=== PATIENT | male | born 1945 | race Two or more races ===

== ENCOUNTER 2017-03-21 15:20 | Inpatient (IN) | payer SELFPAY ==
[2017-03-21] MEDS ORDERED: ACETAMINOPHEN 650 MG/20.3 ML ORAL SOLUTION (CUPS) PO ONE (15:29)
--- NOTE | 2017-03-21 15:37 | PDOC ---
History of Present Illness - General History Source: Patient, Old Records Exam Limitations: No Limitations - History of Present Illness Initial Comments: 03/21/17 17:02 The patient is a 71-year-old man with a significant past medical history of hypertension, hypercholesterolemia, coronary artery disease status post stent x1 , non-insulin diabetes mellitus and kidney stones who presents to the emergency department for fever. Patient reports a 1 week history of an atruamatic severe frontal headache that radiates to both of his ears, right greater than left with associated generalized malaise and a sore throat. He denies associated symptoms of lightheadedness, visual changes, dizziness, chest pain, neck and back pain. He also notes a three day history of intermittent subjective fevers at home with associated shaking chills and myagias. Upon ED arrival, patient was noted to have an oral temperature of 102.9 and tachycardic to 118 bpm. No sick contacts No cough, shortness of breath, abdominal pain, nausea, vomiting, diarrhea. No changes in strength and sensations to his extremities. No urinary complaints. Allergies: No Known Drug Allergies Past Surgical History: Stent x1 Social History: Former smoker. No EtOH and recreational drug use. Primary Care Physician: N/A <Estela Phillips - Last Filed: 03/21/17 18:30> <Altagracia Medina - Last Filed: 03/21/17 18:32> - General Chief Complaint: SIRS, Suspected/Possible Stated Complaint: SOB/FEVER Time Seen by Provider: 03/21/17 15:37 Past History <Estela Phillips - Last Filed: 03/21/17 18:30> - Past Medical History Cardiac Disorders: Yes (cad) Diabetes: Yes (niddm) Hypercholesterolemia: Yes Kidney Stones: Yes - Surgical History Cardiac Surgery: Yes (stent) - Psycho/Social/Smoking Cessation Hx Anxiety: No Suicidal Ideation: No Smoking History: Former smoker Have you smoked in the past 12 months: No Information on smoking cessation initiated: No Hx Alcohol Use: No Drug/Substance Use Hx: No Substance Use Type: None <Altagracia Medina - Last Filed: 03/21/17 18:32> - Past Medical History Allergies/Adverse Reactions: Allergies Allergy/AdvReac Type Severity Reaction Status Date / Time No Known Allergies Allergy Verified 03/21/17 15:23 Review of Systems - Review of Systems Able to Perform ROS?: Yes Comments:: 03/21/17 17:02 GENERAL/CONSTITUTIONAL: Yes: Fever. Chills. Generalized Malaise. HEAD, EYES, EARS, NOSE AND THROAT: Yes: Sore Throat. Ear Pain (R>L). No change in vision. CARDIOVASCULAR: No chest pain or shortness of breath. RESPIRATORY: No cough, wheezing, or hemoptysis. GASTROINTESTINAL: No nausea, vomiting, diarrhea or constipation. GENITOURINARY: No dysuria, frequency, or change in urination. MUSCULOSKELETAL: No joint or muscle swelling or pain. No neck or back pain. SKIN: No rash NEUROLOGIC: Yes: Headache. No vertigo, loss of consciousness, or change in strength/sensation. ENDOCRINE: No increased thirst. No abnormal weight change. HEMATOLOGIC/LYMPHATIC: No anemia, easy bleeding, or history of blood clots. ALLERGIC/IMMUNOLOGIC: No hives or skin allergy. <Estela Phillips - Last Filed: 03/21/17 18:30> *Physical Exam - Vital Signs Last Vital Signs Temp Pulse Resp BP Pulse Ox 102.9 F H 103 H 18 106/56 97 03/21/17 15:23 03/21/17 16:42 03/21/17 16:42 03/21/17 16:42 03/21/17 16:42 - Physical Exam Comments: 03/21/17 17:03 GENERAL: Awake, alert, and fully oriented, appears mildly uncomfortable. HEAD: No signs of trauma EYES: PERRLA, EOMI, sclera anicteric, conjunctiva clear ENT: The right tympanic membrane is erythematous and slightly bulging. The left tympanic membrane is WNL. Hearing grossly normal, nares patent, oropharynx clear without exudates. Moist mucosa NECK: Normal ROM, supple, no lymphadenopathy, JVD, or masses LUNGS: Breath sounds equal, clear to auscultation bilaterally. No wheezes, and no crackles HEART: Regular rate and rhythm, normal S1 and S2, no murmurs, rubs or gallops ABDOMEN: Soft, nontender, normoactive bowel sounds. No guarding, no rebound. No masses EXTREMITIES: Normal range of motion, no edema. No clubbing or cyanosis. No cords, erythema, or tenderness NEUROLOGICAL: Cranial nerves II through XII grossly intact. Normal speech <Estela Phillips - Last Filed: 03/21/17 18:30> - Vital Signs Last Vital Signs Temp Pulse Resp BP Pulse Ox 102.9 F H 118 H 18 119/59 100 03/21/17 15:23 03/21/17 15:23 03/21/17 15:23 03/21/17 15:23 03/21/17 15:23 <Altagracia Medina - Last Filed: 03/21/17 18:32> ED Treatment Course - LABORATORY CBC & Chemistry Diagram: 03/21/17 16:30 03/21/17 16:30 - ADDITIONAL ORDERS Additional order review: 03/21/17 16:30 RBC 3.80 L MCV 89.3 MCHC 34.0 RDW 14.2 Neutrophils % Y Lymphocytes % Y - Medications Given in the ED: ED Medications Discontinued Medications Generic Name Dose Route Start Last Admin Trade Name Freq PRN Reason Stop Dose Admin Acetaminophen 975 mg 03/21/17 15:29 03/21/17 15:29 Tylenol Oral Solution - PO 03/21/17 15:30 975 mg NOW ONE Administration Acetaminophen 1,000 mg 03/21/17 16:04 03/21/17 16:40 Tylenol - PO 03/21/17 16:05 1,000 mg ONCE ONE Administration <Phillips,Estela - Last Filed: 03/21/17 18:30> - LABORATORY CBC & Chemistry Diagram: 03/21/17 16:30 03/21/17 16:30 - Medications Given in the ED: ED Medications Discontinued Medications Generic Name Dose Route Start Last Admin Trade Name Freq PRN Reason Stop Dose Admin Acetaminophen 975 mg 03/21/17 15:29 03/21/17 15:29 Tylenol Oral Solution - PO 03/21/17 15:30 975 mg NOW ONE Administration <Altagracia Medina - Last Filed: 03/21/17 18:32> Medical Decision Making - Medical Decision Making 03/21/17 17:[address] Thomas Rehman 03/21/17 18:[address] Rehman. Admits to Kennedy Aburto. Will page Dr. Aburto. 03/21/17 18:[address] Naomy Aburto 03/21/17 18:[address] Naomy Aburto. 03/21/17 18:[address] Naomy Aburto. Case was discussed. <Estela Phillips - Last Filed: 03/21/17 18:30> - Medical Decision Making 03/21/17 16:29 Pt presents tot ED complaining of a one week history of generalized malaise and headaches. Also complaining of R > L ear discomfort, myalgias and chills. + fever at home for the last three days. Patient presented to the ED today because his son found him to be tachycardic, and given his cardiac history, was concerned. Febrile and tachycardic on arrival, with normal blood pressure. + R otitis media on exam. Will check labs, give IV fluids and tylenol for fever control and reassess. Will consider discharge home with antibiotics if fever and heart rate improve and labs are normal. 03/21/17 17:57 Labs show lacate of 3.6. Patient remains normotensive and feels improved after IV hydration. Case discussed with patient's PMD Dr. Blas, who recommends admitting overnight. Will give antibiotics after CXR and Ua are resulted. <Altagracia Medina - Last Filed: 03/21/17 18:32> *DC/Admit/Observation/Transfer - Attestations Scribe Attestion: 03/21/17 17:03 Documentation prepared by Estela Phillips, acting as medical transcription radiology for Altagracia Medina MD. <Estela Phillips - Last Filed: 03/21/17 18:30> - Discharge Dispostion Admit: Yes Decision to Admit order Date/Time: 03/21/17 18:32 <Altagracia Medina - Last Filed: 03/21/17 18:32> Diagnosis at time of Disposition: Systemic inflammatory response syndrome (SIRS) - Discharge Dispostion Condition at time of disposition: Good
[2017-03-21] MEDS ORDERED: ACETAMINOPHEN 500 MG TABLET (FP) PO ONE (16:04)
[2017-03-21] MEDS ORDERED: SODIUM CHLORIDE 1,000 ML IV STA (16:05)
[2017-03-21] MEDS ORDERED: ACETAMINOPHEN 325 MG TABLET (FP) ONE (16:32)
[2017-03-21 16:41] LABS: MCH 30.4 pg (25.7-33.7); MEAN CELL VOLUME 89.3 fl (80-96); RDW 14.2 % (11.9-15.9); WHITE BLOOD COUNT 4.5 K/mm3 (4.0-10.0)
[2017-03-21 17:13] LABS: ALBUMIN 3.8 g/dl (3.4-5.0); ALK PHOS 65 U/L (45-117); ANION GAP 10 (8-16); BILIRUBIN,TOTAL 0.6 mg/dL (0.2-1.0); CALCIUM 8.6 mg/dL (8.5-10.1); CO2 25 mmol/L (21-32); CREATININE 1.7 mg/dL (0.7-1.3); GLUCOSE,RANDOM 176 mg/dL (74-106); SGOT/AST 45 U/L (15-37); SGPT/ALT 54 U/L (12-78); TOT PROT 6.9 g/dl (6.4-8.2)
[2017-03-21 18:18] LABS: MEAN PLT VOLUME 7.8 fl (7.5-11.1); PLATELET COUNT 81 K/MM3 (134-434)
[2017-03-21 18:19] LABS: PLATELET ESTIMATE SLT DECREASED (NORMAL)
[2017-03-21] MEDS ORDERED: CEFTRIAXONE 1 GM in DEXTROSE 5%-WATER - 50 ML IVPB ONE (18:31)
[2017-03-21] MEDS ORDERED: CEFTRIAXONE 50 ML ONE (19:07)
[2017-03-21] MEDS ORDERED: ACETAMINOPHEN 325 MG TABLET (FP) PO PRN (22:08)
[2017-03-21] MEDS: SODIUM CHLORIDE 0.45%/POT 1,000 ML IV SCH (23:26)
[2017-03-22 00:46] VITALS: BMI 35.0
[2017-03-22 01:18] LABS: URINE APPEARANCE CLEAR; URINE BILIRUBIN NEGATIVE (NEGATIVE); URINE COLOR LTYELLOW; URINE GLUCOSE (UA) NEGATIVE (NEGATIVE); URINE KETONE NEGATIVE (NEGATIVE); URINE LEUK ESTERASE NEGATIVE (NEGATIVE); URINE NITRITE NEGATIVE (NEGATIVE); URINE PROTEIN NEGATIVE (NEGATIVE); URINE UROBILINOGEN NEGATIVE E.U./dl (0.2-1.0)
[2017-03-22 01:40] LABS: URINE BLOOD 1+ (NEGATIVE)
[2017-03-22 01:49] LABS: URINE BACTERIA RARE /hpf (NONE SEEN); URINE MUCUS RARE; URINE RBC 2 /hpf (0-3); URINE WBC 1 /hpf (3-5)
[2017-03-22] MEDS ORDERED: ACETAMINOPHEN 325 MG TABLET (FP) PO ONE (03:34)
[2017-03-22] MEDS: INSULIN SLIDING SCALE (NOVOLOG) 1 VIAL SQ SCH ×4 (06:03→22:14)
[2017-03-22] MEDS ORDERED: SODIUM CHLORIDE 500 ML IV STA ×2 (06:05→06:06)
[2017-03-22 08:11] LABS: BASOPHIL 0.2 % (0-2.0); EOSINOPHIL 0.1 % (0-4.5); MCH 30.6 pg (25.7-33.7); MCHC 34.2 g/dl (32.0-35.9); MEAN CELL VOLUME 89.5 fl (80-96); MEAN PLT VOLUME 7.6 fl (7.5-11.1); PLATELET COUNT 60 K/MM3 (134-434); RDW 14.2 % (11.9-15.9); WHITE BLOOD COUNT 4.1 K/mm3 (4.0-10.0)
--- NOTE | 2017-03-22 08:13 | HP ---
Admitting History and Physical - Admission History of Present Illness: 71-year-old man with a significant past medical history of hypertension, hypercholesterolemia, coronary artery disease status post stent x1, non-insulin diabetes mellitus and kidney stones who presents to the emergency department for fever. Patient reports a 2 day history of an atruamatic severe frontal headache that radiates to both of his ears, right greater than left with associated generalized malaise and a sore throat. He denies associated symptoms of lightheadedness, visual changes, dizziness, chest pain, neck and back pain. He also notes a 2 day history of intermittent subjective fevers at home with associated shaking chills and myagias. Upon ED arrival, patient was noted to have an oral temperature of 102.9 and tachycardic to 118 bpm. PATIENT REPORTS INSECT BITE 23 DAYS AGO PT HERE FROM [facility] 66 DAYS AGO - Past Medical History Cardiovascular: Yes: CAD, HTN, Hyperlipdemia Pulmonary: No: Asthma Gastrointestinal: No: Ascites Renal/: Yes: Renal Inusuff, BPH Endocrine: Yes: Diabetes Mellitus - Smoking History Smoking history: Former smoker Have you smoked in the past 12 months: No - Alcohol/Substance Use Hx Alcohol Use: No Home Medications - Allergies Allergies/Adverse Reactions: Allergies Allergy/AdvReac Type Severity Reaction Status Date / Time No Known Allergies Allergy Verified 03/21/17 15:23 - Home Medications Home Medications: Ambulatory Orders Bisoprolol Fumarate 03/22/17 Enalapril Maleate 03/22/17 Metformin HCl 03/22/17 Simvastatin 03/22/17 Tamsulosin HCl 03/22/17 Review of Systems - Review of Systems Constitutional: reports: Chills, Fever, Night Sweats Cardiovascular: denies: Chest Pain Respiratory: denies: SOB Gastrointestinal: denies: Abdominal Pain Genitourinary: denies: Burning Neurological: reports: Headache Physical Examination Vital Signs: Vital Signs Temperature 98 F 03/22/17 06:41 Pulse Rate 75 03/22/17 07:16 Respiratory Rate 20 03/22/17 07:16 Blood Pressure 110/54 03/22/17 07:16 O2 Sat by Pulse Oximetry (%) 99 03/21/17 21:00 HENT: Yes: Other (minimal erythema of left tm) Cardiovascular: Yes: Regular Rate and Rhythm Respiratory: Yes: Regular, CTA Bilaterally Gastrointestinal: Yes: Normal Bowel Sounds, Soft Edema: No Imaging - Results Cat Scan: Report Reviewed Problem List - Problems (1) Sepsis Assessment/Plan: IV ABX ID CONSULT--D/W DR MAYS IVF CULTURES Code(s): A41.9 - SEPSIS, UNSPECIFIED ORGANISM (2) Fever Assessment/Plan: ABOVE Code(s): R50.9 - FEVER, UNSPECIFIED Qualifiers: Fever type: febrile nonhemolytic transfusion reaction Qualified Code (s): R50.84 - Febrile nonhemolytic transfusion reaction (3) Thrombocytopenia Assessment/Plan: MONITOR Code(s): D69.6 - THROMBOCYTOPENIA, UNSPECIFIED (4) Diabetes Assessment/Plan: BGM Code(s): E11.9 - TYPE 2 DIABETES MELLITUS WITHOUT COMPLICATIONS (5) Renal insufficiency Assessment/Plan: HOLD METFORMIN CHECK PREVIOUS Code(s): N28.9 - DISORDER OF KIDNEY AND URETER, UNSPECIFIED (6) Anemia Assessment/Plan: W/U OREDERED Code(s): D64.9 - ANEMIA, UNSPECIFIED
[2017-03-22] MEDS ORDERED: sitaGLIPtin PHOSPHATE 50 MG TABLET PO ONE ×2 (08:15→13:00)
[2017-03-22 09:00] LABS: LDL CHOLESTEROL (ONLY SJRH) 73 mg/dL (5-100)
[2017-03-22 09:08] LABS: ALBUMIN 3.3 g/dl (3.4-5.0); ALK PHOS 58 U/L (45-117); ANION GAP 10 (8-16); BILIRUBIN,TOTAL 0.6 mg/dL (0.2-1.0); CALCIUM 7.7 mg/dL (8.5-10.1); CHOLESTEROL 129 mg/dL (50-200); CO2 26 mmol/L (21-32); CREATININE 1.4 mg/dL (0.7-1.3); GLUCOSE,RANDOM 118 mg/dL (74-106); SGOT/AST 42 U/L (15-37); SGPT/ALT 50 U/L (12-78); TOT PROT 5.9 g/dl (6.4-8.2); TROPONIN I < 0.02 ng/ml (0.00-0.05)
--- NOTE | 2017-03-22 09:29 | PN ---
Progress Note, Physician Chief Complaint: ID Asked to see this 71 year old diabetic arab speaking man with fever. Case and history discussed with Dr Aburto Minimal symptoms He is outdoors working in his yard No travel - Current Medication List Current Medications: Active Medications Acetaminophen (Tylenol -) 650 mg PO Q4H PRN PRN Reason: FEVER OR PAIN Last Admin: 03/22/17 01:55 Dose: 650 mg Aspirin (Ecotrin -) 81 mg PO DAILY MICHAEL Atorvastatin Calcium (Lipitor -) 20 mg PO HS MICHAEL Heparin Sodium (Porcine) (Heparin -) 5,000 unit SQ BID MICHAEL Ceftriaxone Sodium (Rocephin 1gm Ivpb (Pre-Docked)) 50 mls @ 100 mls/hr IVPB DAILY MICHAEL Potassium Chloride/Sodium Chloride (1/2ns+20meq Kcl) 1,000 mls @ 75 mls/hr IV ASDIR MICHAEL Last Admin: 03/21/17 23:26 Dose: 75 mls/hr Insulin Aspart (Novolog Vial Sliding Scale -) 1 vial SQ ACHS MICHAEL PRN Reason: Protocol Last Admin: 03/22/17 06:03 Dose: Not Given Nebivolol (Bystolic -) 5 mg PO DAILY MICHAEL Sitagliptin Phosphate (Januvia -) 50 mg PO DAILY@0700 MICHAEL Tamsulosin HCl (Flomax -) 0.4 mg PO DAILY@0830 [facility] - Objective Vital Signs: Vital Signs Temperature 98 F 03/22/17 06:41 Pulse Rate 75 03/22/17 07:16 Respiratory Rate 20 03/22/17 07:16 Blood Pressure 110/54 03/22/17 07:16 O2 Sat by Pulse Oximetry (%) 99 03/21/17 21:00 Constitutional: Yes: Well Nourished, No Distress Eyes: Yes: WNL, Conjunctiva Clear HENT: Yes: Other (Dentures) Neck: Yes: WNL, Supple, Trachea Midline Cardiovascular: Yes: WNL, Regular Rate and Rhythm, S1, S2. No: Murmur Respiratory: Yes: WNL, Regular, CTA Bilaterally Gastrointestinal: Yes: WNL, Normal Bowel Sounds. No: Tenderness, Tenderness, Epigastrium Edema: No Labs: CBC, BMP 03/22/17 06:55 03/22/17 06:55 Problem List - Problems (1) Diabetes Code(s): E11.9 - TYPE 2 DIABETES MELLITUS WITHOUT COMPLICATIONS (2) Fever Code(s): R50.9 - FEVER, UNSPECIFIED Qualifiers: Fever type: febrile nonhemolytic transfusion reaction Qualified Code (s): R50.84 - Febrile nonhemolytic transfusion reaction (3) Thrombocytopenia Code(s): D69.6 - THROMBOCYTOPENIA, UNSPECIFIED Assessment/Plan Microbiology Selected Entries 03/22/17 03/22/17 03/22/17 00:55 03:00 06:41 Temperature 102.9 F H 101.9 F H 98 F Laboratory Tests 03/21/17 03/21/17 03/21/17 16:30 19:00 20:17 WBC Hgb Hct Plt Count Neutrophils % Monocytes % ESR Creat Clearance w eGFR Lactic Acid 3.8 H* 1.4 Total Bilirubin AST ALT Alkaline Phosphatase Urine RBC 2 Urine WBC 1 03/22/17 03/22/17 03/22/17 06:55 06:55 06:55 WBC 4.1 Hgb 11.2 L Hct 32.8 L Plt Count 60 L D Neutrophils % 76.0 Monocytes % 11.0 H ESR Pending Creat Clearance w eGFR 50.25 Lactic Acid Total Bilirubin 0.6 AST 42 H ALT 50 Alkaline Phosphatase 58 Urine RBC Urine WBC Assesment Fever unknown source a this time Differential diagnosis would include Viral illness as well as tick related disease HGA Lyme Babesia Bacterial disease has to be considered though blood culture as expected no growth thus far Plan Stop Ceftriaxone if blood and urine c/s no growth tomorrow Add Doxycycline Tick realted serology CMV Serology monospot ESR CRP Brian REEVES
[2017-03-22] MEDS ORDERED: CEFTRIAXONE 50 ML IVPB SCH (10:00)
[2017-03-22] MEDS ORDERED: NEBIVOLOL 5 MG TABLET (FP) PO SCH (10:00)
[2017-03-22] MEDS ORDERED: INSULIN (NOVOLOG) ASPART 100 UNITS/ML 10ML VIAL ONE ×3 (11:21→21:34)
[2017-03-22] MEDS: ASPIRIN COATED 81 MG TABLET.EC PO SCH (11:27)
[2017-03-22] MEDS: TAMSULOSIN HCL 0.4 MG CAP.ER.24H (FP) PO SCH (11:27)
[2017-03-22] MEDS: DOXYCYCLINE INJECTION 100 MG in DEXTROSE 5%-WATER - 100 ML IVPB SCH ×2 (11:29→22:09)
[2017-03-22] MEDS: NEBIVOLOL 5 MG TABLET (FP) PO SCH (11:37)
[2017-03-22] MEDS: HEPARIN NA (PORCINE) 5,000 UNITS/ML 1ML VIAL SQ SCH ×2 (11:41→22:09)
--- NOTE | 2017-03-22 12:38 | EKG ---
Test Reason : Blood Pressure : / mmHG Vent. Rate : 078 BPM Atrial Rate : 078 BPM P-R Int : 154 ms QRS Dur : 082 ms QT Int : 374 ms P-R-T Axes : 012 -02 074 degrees QTc Int : 426 ms NORMAL SINUS RHYTHM NORMAL ECG WHEN COMPARED WITH ECG OF 21-MAR-2017 20:18, NO SIGNIFICANT CHANGE WAS FOUND Confirmed by JENNA PADGETT MD ([id number]) on 03/22/2017 12:38:09 PM Referred By: MARIAM LOYA Confirmed By:JENNA PADGETT MD
--- NOTE | 2017-03-22 12:53 | EKG ---
Test Reason : Blood Pressure : / mmHG Vent. Rate : 094 BPM Atrial Rate : 094 BPM P-R Int : 150 ms QRS Dur : 090 ms QT Int : 344 ms P-R-T Axes : 005 000 074 degrees QTc Int : 430 ms NORMAL SINUS RHYTHM NONSPECIFIC T WAVE ABNORMALITY ABNORMAL ECG NO PREVIOUS ECGS AVAILABLE Confirmed by JENNA PADGETT MD ([id number]) on 03/22/2017 12:52:54 PM Referred By: Confirmed By:JENNA PADGETT MD
[2017-03-22] MEDS: SODIUM CHLORIDE 0.45%/POT 1,000 ML IV SCH ×2 (17:47→21:48)
--- NOTE | 2017-03-22 18:21 | CONS ---
DATE OF CONSULTATION: HISTORY: This is a 71-year-old diabetic Romansh speaking man who I am asked to see for evaluation of unexplained fever. He has a history of diabetes, hypertension , coronary artery disease, hyperlipidemia, and kidney stones and presented to the emergency room with chief complaint of fever. According to the emergency room notes, he had told the emergency staff that he had been having headaches for several days associated with some generalized malaise and a sore throat. Currently, he notes that his headache has resolved. He does not appear toxic appearing when seeing him and does not offer any other complaints at this time. He points to an area in his right lower extremity where he thinks he may have been bitten by an insect. He has no other rash, joint problems, eye complaints, current headaches, or joint swelling or stiffness. He lives with his family at home. There is no history of recent travel, and his HIV status is unknown. PAST MEDICAL HISTORY: As noted above. MEDICATIONS: Include Flomax, Bystolic, Januvia, Lipitor, insulin, Ecotrin. ALLERGIES: None known. SOCIAL HISTORY: . No history of alcohol abuse. Nonsmoker. FAMILY HISTORY: Reviewed and noncontributory. REVIEW OF SYSTEMS: Respiratory: No cough, shortness of breath, hemoptysis. Cardiac: No chest pain, palpitations, history of murmur. Gastrointestinal: No abdominal pain, vomiting, diarrhea. Genitourinary: No dysuria, hematuria, urinary frequency. Skin: No rash. PHYSICAL EXAMINATION: General: He is an alert male in no acute distress. Vital Signs: Temperature 102.9 on admission, now 98, pulse 75, blood pressure 110/54, respirations 20. HEENT: Sclerae anicteric. Oropharynx, no evidence of erythema or exudate. Upper and lower dentures. Neck: Supple with no adenopathy. Lungs: Clear to percussion and auscultation. Heart: S1, S2. Regular rhythm without audible murmur. Abdomen: Soft and nontender without hepatosplenomegaly. Extremities: Without clubbing, cyanosis, or edema. Skin: Reveals a small, erythematous lesion in the medial inner right lower extremity below the knee, which was tender to touch but not fluctuant. DIAGNOSTIC DATA: White count 4.1, hemoglobin 11.2, platelets 60,000, with 76% polys, 13 lymphocytes, 11% bands. Sedimentation rate pending. BUN 19, creatinine 1.4, bilirubin 0.6, AST 42, alkaline phosphatase 58. Urinalysis: 2 RBCs, 1 WBC. Chest x-ray shows no acute infiltrate. ASSESSMENT: A 71-year-old diabetic male who presents with fever of unknown source. Currently he does not appear toxic, and his vital signs are stable. He is apparently an outdoor gardening individual, and the possibility given the summertime of a tick-related illness such as human granulocytic anaplasmosis is considered. Additional tick illnesses including Lyme and Babesia also considered as a possible cause of fever and thrombocytopenia. His rash is not consistent with erythema migrans and appears incidental at this point and could represent a simple insect bite. The thrombocytopenia could be on the basis of a viral illness, but once again, tick-related organisms considered. PLAN: Would discontinue ceftriaxone if his blood and urine cultures are no growth. Will add doxycycline for HGA coverage. Serologies for HGA, Babesia, and Lyme as well as CMV and mononucleosis have been ordered. The latter, of course, unlikely given his age. Case was discussed with Dr. Aburto. DEVYN PIEDRA M.D. [id number] MTDD
--- NOTE | 2017-03-22 20:54 | CONSULT ---
Consult - text type - Consultation Consultation Note: NEUROLOGY CONSULTATION is greatly appreciated: This 71 yo man with h/o HTN, DM,Chol, ASHD is s/p Stent. Maintained on tamsulosin, januvia, bystoloic, lipitor and insulin. Now admitted after 1 week of headache, malaise, fever and chills with temp over 102 in ER. WBC=4K. Chest XRay and UA unremarkable. Better on Ceftriaxone for possible insect vector borne infection from yard work. CT of head (reviewed): Normal study. MISTY: Afebrile. Neck supple. No bruits. Cor: Reg. No skin rashes. NEURO: Awake alert. Follows all visual clues. No frontal release findings. CN II-XII: Normal Motor: NO drift or tremor. Normal strength. Min cogwheeling on Right. Normal HAMILTON's Normal reflexes except reduced AJ's. Toes downgoing Coord: NO FTN dystaxia Sensory: Normal Romberg neg Gait: Normal. Walk on heads, toes. IMP: Normal neurological exam. Possible mild diabetic Peripheral neuropathy. Possible viral meningitis. R/O Lyme, etc. SUGGEST: Continue current Rx. Await serologies. F/U Dr. Torres as out patient. Thank you very much, Cortez Talbot MD
[2017-03-22] MEDS ORDERED: PT OWN MED DRAWER 7, Y5N ONE ×2 (21:08→21:13)
[2017-03-22] MEDS: DOCUSATE SODIUM 100 MG CAPSULE (FP) PO SCH (22:09)
[2017-03-22] MEDS: ATORVASTATIN CA 20 MG TABLET (FP) PO SCH (22:09)
--- NOTE | 2017-03-22 23:51 | CONSULT ---
Consult Consult Specialty:: ENDOCRINE Referred by:: DR.ANNABI BECERRA Reason for Consultation:: DIABETES MELLITUS - History of Present Illness Chief Complaint: FEVER CHILLS AFTER INSECT BITE History of Present Illness: 71 Y ZAMBIAN MALE PMH NIDDM,HTN,HYPERLIPIDEMIA,CAD,WAS VISITING BROTHER HAD BEEN IN USUAL STATE OF HEALTH,STARTED FEELING FLUE LIKE ILLNESS HEADACHE,FEVER CHILLS SINCE INSECT BITE TO FACE AND RIGHT LEG WITH CHILLS AND MALAISE,HAS BEEN ON ANTIBIOTIC AND FEELS SOMEWHAT BETTER DENIES NAUSEA OR VOMITING - History Source History Provided By: Patient - Past Medical History Cardio/Vascular: Yes: CAD, HTN, Hyperlipdemia Pulmonary: No: Asthma Gastrointestinal: No: Ascites Renal/: Yes: Renal Inusuff, BPH Endocrine: Yes: Diabetes Mellitus - Alcohol/Substance Use Hx Alcohol Use: No - Smoking History Smoking history: Former smoker Have you smoked in the past 12 months: No Home Medications - Allergies Allergies/Adverse Reactions: Allergies Allergy/AdvReac Type Severity Reaction Status Date / Time No Known Allergies Allergy Verified 03/21/17 15:23 - Home Medications Home Medications: Ambulatory Orders Bisoprolol Fumarate 03/22/17 Enalapril Maleate 03/22/17 Metformin HCl 03/22/17 Simvastatin 03/22/17 Tamsulosin HCl 03/22/17 Review of Systems - Review of Systems Constitutional: reports: Fever, Lethargy, Loss of Appetite, Weakness Eyes: reports: No Symptoms HENT: reports: Ear Pain Neck: reports: No Symptoms Cardiovascular: reports: No Symptoms Respiratory: reports: No Symptoms Gastrointestinal: reports: No Symptoms Genitourinary: reports: No Symptoms Breasts: reports: No Symptoms Reported Musculoskeletal: reports: No Symptoms Integumentary: reports: No Symptoms Neurological: reports: No Symptoms Endocrine: reports: No Symptoms Hematology/Lymphatic: reports: No Symptoms Physical Exam Vital Signs: Vital Signs Temperature 98.4 F 03/22/17 18:00 Pulse Rate 85 03/22/17 18:00 Respiratory Rate 18 03/22/17 18:00 Blood Pressure 116/58 03/22/17 18:00 O2 Sat by Pulse Oximetry (%) 97 03/22/17 10:00 Constitutional: Yes: Anxious Eyes: Yes: EOM Intact HENT: Yes: Normocephalic Neck: Yes: Trachea Midline Cardiovascular: Yes: Regular Rate and Rhythm Respiratory: Yes: CTA Bilaterally Gastrointestinal: Yes: Normal Bowel Sounds ...Rectal Exam: Yes: Deferred Renal/: Yes: WNL Breast(s): Yes: WNL Musculoskeletal: Yes: Joint Swelling, Muscle Pain Extremities: Yes: Other (RIGHT THIGH RED IRRITATED RAISED SIGHT NEAR THE INSECT BITE) Peripheral Pulses WNL: Yes Integumentary: Yes: WNL Neurological: Yes: WNL, Alert, Oriented Labs: CBC, BMP 03/22/17 06:55 03/22/17 06:55 Problem List - Problems (1) Anemia Code(s): D64.9 - ANEMIA, UNSPECIFIED Qualifiers: Anemia type: unspecified type Qualified Code(s): D64.9 - Anemia, unspecified (2) Diabetes Code(s): E11.9 - TYPE 2 DIABETES MELLITUS WITHOUT COMPLICATIONS (3) Fever Code(s): R50.9 - FEVER, UNSPECIFIED Qualifiers: Fever type: febrile nonhemolytic transfusion reaction Qualified Code (s): R50.84 - Febrile nonhemolytic transfusion reaction (4) Systemic inflammatory response syndrome (SIRS) Code(s): R65.10 - SIRS OF NON-INFECTIOUS ORIGIN W/O ACUTE ORGAN DYSFUNCTION (5) Thrombocytopenia Code(s): D69.6 - THROMBOCYTOPENIA, UNSPECIFIED Assessment/Plan Current Active Problems Anemia (Acute) Diabetes (Acute) Fever (Acute) Renal insufficiency (Acute) Sepsis (Acute) Systemic inflammatory response syndrome (SIRS) (Acute) Thrombocytopenia (Acute) Abnormal Lab Results 03/21/17 03/22/17 03/22/17 20:17 06:55 06:55 RBC 3.67 L Hgb 11.2 L Hct 32.8 L Plt Count 60 L D Monocytes % 11.0 H ESR BUN 19 H Creatinine 1.4 H Random Glucose 118 H D Hemoglobin A1c % Calcium 7.7 L AST 42 H C-Reactive Protein Total Protein 5.9 L Albumin 3.3 L Urine Blood 1+ H 03/22/17 03/22/17 03/22/17 06:55 06:55 06:55 RBC Hgb Hct Plt Count Monocytes % ESR 30 H BUN Creatinine Random Glucose Hemoglobin A1c % 6.4 H Calcium AST C-Reactive Protein 11.4 H Total Protein Albumin Urine Blood Laboratory Results - last 24 hr 06/25/17 06/26/17 06/26/17 20:17 05:58 06:55 WBC 4.1 RBC 3.67 L Hgb 11.2 L Hct 32.8 L MCV 89.5 MCHC 34.2 RDW 14.2 Plt Count 60 L D MPV 7.6 Neutrophils % 76.0 Lymphocytes % 12.7 D Monocytes % 11.0 H Eosinophils % 0.1 Basophils % 0.2 ESR Sodium Potassium Chloride Carbon Dioxide Anion Gap BUN Creatinine Creat Clearance w eGFR POC Glucometer 138 Random Glucose Hemoglobin A1c % Calcium Total Bilirubin AST ALT Alkaline Phosphatase Troponin I C-Reactive Protein Total Protein Albumin Triglycerides Cholesterol Total LDL Cholesterol HDL Cholesterol Vitamin B12 TSH Urine Color Ltyellow Urine Appearance Clear Urine pH 5.0 Ur Specific [place] 1.010 Urine Protein Negative Urine Glucose (UA) Negative Urine Ketones Negative Urine Blood 1+ H Urine Nitrite Negative Urine Bilirubin Negative Urine Urobilinogen Negative Ur Leukocyte Esterase Negative Urine RBC 2 Urine WBC 1 Ur Epithelial Cells Rare Urine Bacteria Rare Urine Mucus Rare 03/22/17 03/22/17 03/22/17 06:55 06:55 06:55 WBC RBC Hgb Hct MCV MCHC RDW Plt Count MPV Neutrophils % Lymphocytes % Monocytes % Eosinophils % Basophils % ESR Sodium 139 Potassium 4.3 Chloride 103 Carbon Dioxide 26 Anion Gap 10 BUN 19 H Creatinine 1.4 H Creat Clearance w eGFR 50.25 POC Glucometer Random Glucose 118 H D Hemoglobin A1c % 6.4 H Calcium 7.7 L Total Bilirubin 0.6 AST 42 H ALT 50 Alkaline Phosphatase 58 Troponin I < 0.02 C-Reactive Protein 11.4 H Total Protein 5.9 L Albumin 3.3 L Triglycerides 90 Cholesterol 129 Total LDL Cholesterol 73 HDL Cholesterol 40 Vitamin B12 470 TSH 1.50 Urine Color Urine Appearance Urine pH Ur Specific [place] Urine Protein Urine Glucose (UA) Urine Ketones Urine Blood Urine Nitrite Urine Bilirubin Urine Urobilinogen Ur Leukocyte Esterase Urine RBC Urine WBC Ur Epithelial Cells Urine Bacteria Urine Mucus 03/22/17 03/22/17 03/22/17 06:55 11:31 17:29 WBC RBC Hgb Hct MCV MCHC RDW Plt Count MPV Neutrophils % Lymphocytes % Monocytes % Eosinophils % Basophils % ESR 30 H Sodium Potassium Chloride Carbon Dioxide Anion Gap BUN Creatinine Creat Clearance w eGFR POC Glucometer 133 148 Random Glucose Hemoglobin A1c % Calcium Total Bilirubin AST ALT Alkaline Phosphatase Troponin I C-Reactive Protein Total Protein Albumin Triglycerides Cholesterol Total LDL Cholesterol HDL Cholesterol Vitamin B12 TSH Urine Color Urine Appearance Urine pH Ur Specific [place] Urine Protein Urine Glucose (UA) Urine Ketones Urine Blood Urine Nitrite Urine Bilirubin Urine Urobilinogen Ur Leukocyte Esterase Urine RBC Urine WBC Ur Epithelial Cells Urine Bacteria Urine Mucus 03/22/17 22:13 WBC RBC Hgb Hct MCV MCHC RDW Plt Count MPV Neutrophils % Lymphocytes % Monocytes % Eosinophils % Basophils % ESR Sodium Potassium Chloride Carbon Dioxide Anion Gap BUN Creatinine Creat Clearance w eGFR POC Glucometer 142 Random Glucose Hemoglobin A1c % Calcium Total Bilirubin AST ALT Alkaline Phosphatase Troponin I C-Reactive Protein Total Protein Albumin Triglycerides Cholesterol Total LDL Cholesterol HDL Cholesterol Vitamin B12 TSH Urine Color Urine Appearance Urine pH Ur Specific [place] Urine Protein Urine Glucose (UA) Urine Ketones Urine Blood Urine Nitrite Urine Bilirubin Urine Urobilinogen Ur Leukocyte Esterase Urine RBC Urine WBC Ur Epithelial Cells Urine Bacteria Urine Mucus PLAN: BGM QID NOVOLOG INS[employer]IN [employer]AGE JANUVIA 50 MG DAILY CONTINUE WITH IV FLUID REPEAT BMP FOLLOW CULTURES FOR SOURCE INFECTION
[2017-03-23] MEDS: sitaGLIPtin PHOSPHATE 50 MG TABLET PO SCH (06:10)
[2017-03-23] MEDS: INSULIN SLIDING SCALE (NOVOLOG) 1 VIAL SQ SCH ×4 (06:10→22:01)
[2017-03-23 06:11] LABS: SERUM IRON 194 ug/dL (38-169); TOTAL IRON BINDING CAPACITY 292 ug/dL (250-450); UIBC 98 ug/dL (111-343)
[2017-03-23] MEDS: TAMSULOSIN HCL 0.4 MG CAP.ER.24H (FP) PO SCH (08:10)
[2017-03-23] MEDS: SODIUM CHLORIDE 0.45%/POT 1,000 ML IV SCH ×2 (09:41→23:40)
[2017-03-23] MEDS: DOXYCYCLINE INJECTION 100 MG in DEXTROSE 5%-WATER - 100 ML IVPB SCH ×2 (09:42→22:01)
[2017-03-23] MEDS: NEBIVOLOL 5 MG TABLET (FP) PO SCH (09:44)
[2017-03-23] MEDS: HEPARIN NA (PORCINE) 5,000 UNITS/ML 1ML VIAL SQ SCH ×2 (09:51→22:01)
[2017-03-23] MEDS: ASPIRIN COATED 81 MG TABLET.EC PO SCH (09:52)
--- NOTE | 2017-03-23 11:23 | PN ---
Progress Note, Physician Chief Complaint: in bed no distress on iv abx - Current Medication List Current Medications: Active Medications Acetaminophen (Tylenol -) 650 mg PO Q4H PRN PRN Reason: FEVER OR PAIN Last Admin: 03/22/17 01:55 Dose: 650 mg Aspirin (Ecotrin -) 81 mg PO DAILY [facility] Last Admin: 03/23/17 09:52 Dose: 81 mg Atorvastatin Calcium (Lipitor -) 20 mg PO HS [facility] Last Admin: 03/22/17 22:09 Dose: 20 mg Docusate Sodium (Colace -) 300 mg PO HS [facility] Last Admin: 03/22/17 22:09 Dose: 300 mg Heparin Sodium (Porcine) (Heparin -) 5,000 unit SQ BID [facility] Last Admin: 03/23/17 09:51 Dose: 5,000 unit Potassium Chloride/Sodium Chloride (1/2ns+20meq Kcl) 1,000 mls @ 75 mls/hr IV ASDIR [facility] Last Admin: 03/23/17 09:41 Dose: 75 mls/hr Doxycycline Hyclate 100 mg/ (Dextrose) 100 mls @ 100 mls/hr IVPB BID [facility] Last Admin: 03/23/17 09:42 Dose: 100 mls/hr Insulin Aspart (Novolog Vial Sliding Scale -) 1 vial SQ ACHS [facility] PRN Reason: Protocol Last Admin: 03/23/17 06:10 Dose: Not Given Nebivolol (Bystolic -) 5 mg PO DAILY [facility] Last Admin: 03/23/17 09:44 Dose: 5 mg Sitagliptin Phosphate (Januvia -) 50 mg PO DAILY@0700 [facility] Last Admin: 03/23/17 06:10 Dose: 50 mg Tamsulosin HCl (Flomax -) 0.4 mg PO DAILY@0830 [facility] Last Admin: 03/23/17 08:10 Dose: 0.4 mg - Objective Vital Signs: Vital Signs Temperature 98.1 F 03/23/17 06:36 Pulse Rate 71 03/23/17 06:36 Respiratory Rate 18 03/23/17 06:36 Blood Pressure 128/70 03/23/17 06:36 O2 Sat by Pulse Oximetry (%) 95 03/22/17 21:00 Constitutional: Yes: Calm Neck: Yes: Trachea Midline Cardiovascular: Yes: Regular Rate and Rhythm, S1, S2 Respiratory: Yes: CTA Bilaterally Gastrointestinal: Yes: Soft Edema: No Neurological: Yes: Alert, Oriented Labs: CBC, BMP 03/22/17 06:55 03/22/17 06:55 Problem List - Problems (1) Fever Assessment/Plan: Microbiology 03/22/17 19:30 Blood - Peripheral Venous Blood Parasites Smear (TROY) - Final 03/21/17 19:15 Blood - Peripheral Venous Blood Culture - Preliminary NO GROWTH OBTAINED AFTER 24 HOURS, INCUBATION TO CONTINUE FOR 4 DAYS. 03/21/17 19:00 Blood - Peripheral Venous Blood Culture - Preliminary NO GROWTH OBTAINED AFTER 24 HOURS, INCUBATION TO CONTINUE FOR 4 DAYS. elevated ESR on doxycycline iv bid appreicate neuro note Code(s): R50.9 - FEVER, UNSPECIFIED Qualifiers: Fever type: febrile nonhemolytic transfusion reaction Qualified Code (s): R50.84 - Febrile nonhemolytic transfusion reaction (2) Diabetes Assessment/Plan: seen by endo meds adjusted Code(s): E11.9 - TYPE 2 DIABETES MELLITUS WITHOUT COMPLICATIONS Qualifiers: Diabetes mellitus type: type 2 (3) Thrombocytopenia Assessment/Plan: monitir plaletet count maybe sec to infectious state Code(s): D69.6 - THROMBOCYTOPENIA, UNSPECIFIED
[2017-03-23 11:37] LABS: RDW 14.3 % (11.9-15.9); WHITE BLOOD COUNT 2.9 K/mm3 (4.0-10.0)
[2017-03-23 11:46] LABS: BASOPHIL 0.4 % (0-2.0); EOSINOPHIL 1.2 % (0-4.5); MCH 30.5 pg (25.7-33.7); MCHC 33.8 g/dl (32.0-35.9); MEAN CELL VOLUME 90.1 fl (80-96); MEAN PLT VOLUME 8.7 fl (7.5-11.1); NEUTROPHILS 65.7 % (42.8-82.8); PLATELET COUNT 53 K/MM3 (134-434)
[2017-03-23 11:51] LABS: ALBUMIN 3.3 g/dl (3.4-5.0); ALK PHOS 61 U/L (45-117); ANION GAP 8 (8-16); BILIRUBIN,TOTAL 0.4 mg/dL (0.2-1.0); CO2 27 mmol/L (21-32); CREATININE 1.1 mg/dL (0.7-1.3); GLUCOSE,RANDOM 120 mg/dL (74-106); SGOT/AST 45 U/L (15-37); SGPT/ALT 49 U/L (12-78); TOT PROT 6.1 g/dl (6.4-8.2)
--- NOTE | 2017-03-23 15:17 | PN ---
Progress Note, Physician History of Present Illness: Awake and alert Feeling better No c/o headache Temps down- afebrile Leukopenic and thrombocytopenic Serologies pending BC (-) - Current Medication List Current Medications: Active Medications Acetaminophen (Tylenol -) 650 mg PO Q4H PRN PRN Reason: FEVER OR PAIN Last Admin: 03/22/17 01:55 Dose: 650 mg Aspirin (Ecotrin -) 81 mg PO DAILY [facility] Last Admin: 03/23/17 09:52 Dose: 81 mg Atorvastatin Calcium (Lipitor -) 20 mg PO HS [facility] Last Admin: 03/22/17 22:09 Dose: 20 mg Docusate Sodium (Colace -) 300 mg PO HS [facility] Last Admin: 03/22/17 22:09 Dose: 300 mg Heparin Sodium (Porcine) (Heparin -) 5,000 unit SQ BID [facility] Last Admin: 03/23/17 09:51 Dose: 5,000 unit Potassium Chloride/Sodium Chloride (1/2ns+20meq Kcl) 1,000 mls @ 75 mls/hr IV ASDIR [facility] Last Admin: 03/23/17 09:41 Dose: 75 mls/hr Doxycycline Hyclate 100 mg/ (Dextrose) 100 mls @ 100 mls/hr IVPB BID [facility] Last Admin: 03/23/17 09:42 Dose: 100 mls/hr Insulin Aspart (Novolog Vial Sliding Scale -) 1 vial SQ ACHS [facility] PRN Reason: Protocol Last Admin: 03/23/17 11:40 Dose: Not Given Nebivolol (Bystolic -) 5 mg PO DAILY [facility] Last Admin: 03/23/17 09:44 Dose: 5 mg Sitagliptin Phosphate (Januvia -) 50 mg PO DAILY@0700 [facility] Last Admin: 03/23/17 06:10 Dose: 50 mg Tamsulosin HCl (Flomax -) 0.4 mg PO DAILY@0830 [facility] Last Admin: 03/23/17 08:10 Dose: 0.4 mg - Objective Vital Signs: Vital Signs Temperature 98.1 F 03/23/17 14:00 Pulse Rate 80 03/23/17 14:00 Respiratory Rate 20 03/23/17 14:00 Blood Pressure 118/70 03/23/17 14:00 O2 Sat by Pulse Oximetry (%) 98 03/23/17 10:00 Constitutional: Yes: No Distress Eyes: Yes: Conjunctiva Clear Cardiovascular: Yes: Regular Rate and Rhythm Respiratory: Yes: CTA Bilaterally Gastrointestinal: Yes: Normal Bowel Sounds, Soft. No: Tenderness Extremities: Yes: Other Edema: No Integumentary: Yes: Other (2.5 cm annular rash R LE) Labs: CBC, BMP 03/23/17 11:35 03/23/17 11:35 Assessment/Plan Fever, leukopenia/ thrombocytopenia Tick-related illness v. viral Await serologies Continue doxycycline/ ceftriaxone
[2017-03-23] MEDS ORDERED: INSULIN (NOVOLOG) ASPART 100 UNITS/ML 10ML VIAL ONE ×2 (18:02→20:57)
[2017-03-23] MEDS ORDERED: PT OWN MED DRAWER 7, Y5N ONE (20:57)
[2017-03-23] MEDS: ATORVASTATIN CA 20 MG TABLET (FP) PO SCH (22:00)
[2017-03-23] MEDS: DOCUSATE SODIUM 100 MG CAPSULE (FP) PO SCH (22:01)
[2017-03-24] MEDS: INSULIN SLIDING SCALE (NOVOLOG) 1 VIAL SQ SCH ×3 (06:14→16:51)
[2017-03-24] MEDS: sitaGLIPtin PHOSPHATE 50 MG TABLET PO SCH (06:15)
[2017-03-24] MEDS: TAMSULOSIN HCL 0.4 MG CAP.ER.24H (FP) PO SCH (08:26)
[2017-03-24] MEDS ORDERED: PT OWN MED DRAWER 7, Y5N ONE (10:02)
[2017-03-24] MEDS: DOXYCYCLINE INJECTION 100 MG in DEXTROSE 5%-WATER - 100 ML IVPB SCH ×2 (10:16→21:30)
[2017-03-24] MEDS: HEPARIN NA (PORCINE) 5,000 UNITS/ML 1ML VIAL SQ SCH ×2 (10:16→21:30)
[2017-03-24] MEDS: ASPIRIN COATED 81 MG TABLET.EC PO SCH (10:16)
[2017-03-24] MEDS: NEBIVOLOL 5 MG TABLET (FP) PO SCH (10:16)
--- NOTE | 2017-03-24 16:11 | PN ---
Progress Note (short form) - Note Progress Note: feels well no fevers Vital Signs Period Temp Pulse Resp BP Sys/Guillen Pulse Ox Last 24 Hr 97.8 F-98.4 F 67-78 18-20 114-138/52-73 96-96 no rash except bug bit on leg resolving cor-rrr lungs clear abd soft,nt ext no edema CBC, BMP 03/23/17 11:35 03/23/17 11:35 Microbiology 03/21/17 19:15 Blood - Peripheral Venous Blood Culture - Preliminary NO GROWTH OBTAINED AFTER 48 HOURS, INCUBATION TO CONTINUE FOR 3 DAYS. 03/21/17 19:00 Blood - Peripheral Venous Blood Culture - Preliminary NO GROWTH OBTAINED AFTER 48 HOURS, INCUBATION TO CONTINUE FOR 3 DAYS. 03/22/17 01:00 Urine - Urine Clean Catch Urine Culture - Final NO GROWTH OBTAINED 03/22/17 19:30 Blood - Peripheral Venous Blood Parasites Smear (TROY) - Final a/p fever/leukopenia/thrombocytopenia ?viral ?tick continue doxy repeat cbc ordered check parvovirus serology
[2017-03-24 16:47] LABS: MCH 30.1 pg (25.7-33.7); MCHC 33.6 g/dl (32.0-35.9); MEAN CELL VOLUME 89.8 fl (80-96); MEAN PLT VOLUME 8.4 fl (7.5-11.1); PLATELET COUNT 70 K/MM3 (134-434); RDW 14.1 % (11.9-15.9); WHITE BLOOD COUNT 3.3 K/mm3 (4.0-10.0)
--- NOTE | 2017-03-24 17:50 | PN ---
Progress Note, Physician Chief Complaint: FUO HEADACHES History of Present Illness: COMFORTABLE IN BED, ALERT, IS GOING FOR CTA ABDOMEN - Current Medication List Current Medications: Active Medications Acetaminophen (Tylenol -) 650 mg PO Q4H PRN PRN Reason: FEVER OR PAIN Last Admin: 03/22/17 01:55 Dose: 650 mg Aspirin (Ecotrin -) 81 mg PO DAILY [facility] B[facility]S [facility] Last Admin: 03/24/17 10:16 Dose: 81 mg Atorvastatin Calcium (Lipitor -) 20 mg PO [facility] Last Admin: 03/23/17 22:00 Dose: 20 mg Docusate Sodium (Colace -) 300 mg PO HS [facility] 234 BEDS AT [facility] Last Admin: 03/23/17 22:01 Dose: 300 mg Heparin Sodium (Porcine) (Heparin -) 5,000 unit SQ BID [facility] 234 BEDS [facility] Last Admin: 03/24/17 10:16 Dose: 5,000 unit Potassium Chloride/Sodium Chloride (1/2ns+20meq Kcl) 1,000 mls @ 75 mls/hr IV ASDIR [facility]S [facility]CLUDE 234 BEDS AT [facility] Last Admin: 03/23/17 23:40 Dose: 75 mls/hr Doxycycline Hyclate 100 mg/ (Dextrose) 100 mls @ 100 mls/hr IVPB BID [facility] 234 BEDS AT [facility] Last Admin: 03/24/17 10:16 Dose: 100 mls/hr Nebivolol (Bystolic -) 5 mg PO DAILY [facility] 234 BEDS [facility] Last Admin: 03/24/17 10:16 Dose: 5 mg Sitagliptin Phosphate (Januvia -) 50 mg PO DAILY@0700 [facility] 234 BEDS [facility] Last Admin: 03/24/17 06:15 Dose: 50 mg Tamsulosin HCl (Flomax -) 0.4 mg PO DAILY@0830 [facility] 234 BEDS [facility] Last Admin: 03/24/17 08:26 Dose: 0.4 mg - Objective Vital Signs: Vital Signs Temperature 98.2 F 03/24/17 14:05 Pulse Rate 72 03/24/17 14:05 Respiratory Rate 20 03/24/17 14:05 Blood Pressure 138/73 03/24/17 14:05 O2 Sat by Pulse Oximetry (%) 96 03/24/17 09:00 Constitutional: Yes: Well Nourished, No Distress, Calm Cardiovascular: Yes: Regular Rate and Rhythm Respiratory: Yes: Regular Gastrointestinal: Yes: Normal Bowel Sounds Extremities: Yes: WNL Edema: No Peripheral Pulses WNL: Yes Labs: CBC, BMP 03/24/17 16:00 03/23/17 11:35 Problem List - Problems (1) Anemia Assessment/Plan: HEMATOLOGY CONSULT STOOL GUAIAC NEGATIVE Code(s): D64.9 - ANEMIA, UNSPECIFIED Qualifiers: Anemia type: unspecified type Qualified Code(s): D64.9 - Anemia, unspecified (2) Diabetes Assessment/Plan: HGA1C 6.4% CONTROLLED, LAST FEW BGM WERE OKAY, D/C BGMS AND NOVOLOG SLIDING SCALE, CONTINUE JANUVIA Code(s): E11.9 - TYPE 2 DIABETES MELLITUS WITHOUT COMPLICATIONS Qualifiers: Diabetes mellitus type: type 2 (3) Fever Assessment/Plan: AFEBRILE FROM PAST 24 HOURS, IS GOING FOR CTA ABDOMEN Code(s): R50.9 - FEVER, UNSPECIFIED Qualifiers: Fever type: febrile nonhemolytic transfusion reaction Qualified Code (s): R50.84 - Febrile nonhemolytic transfusion reaction (4) Renal insufficiency Assessment/Plan: DEHYDRATION? IVF ORDERED. Code(s): N28.9 - DISORDER OF KIDNEY AND URETER, UNSPECIFIED (5) Thrombocytopenia Assessment/Plan: HEMATOLOGY CONSULT, IMPROVED, REPEAT LABS IN AM Code(s): D69.6 - THROMBOCYTOPENIA, UNSPECIFIED (6) Leukocytosis Assessment/Plan: CAUSE VIRAL? WORK UP PENDING BEING SEEN BY HEMATOLOGY AND ID Code(s): D72.829 - ELEVATED WHITE BLOOD CELL COUNT, UNSPECIFIED Assessment/Plan CTA ABDOMEN, CONTIUE IV ABX MONITOR V/S AND LABS D/C BGMS AND NOVOLOG, CONTINUE JANUVIA
--- NOTE | 2017-03-24 19:40 | CONSULT ---
Consult - text type - Consultation Consultation Note: 71-year-old man with a significant past medical history of hypertension, hypercholesterolemia, coronary artery disease status post stent x1, non-insulin diabetes mellitus and kidney stones who presents to the emergency department for fever. Patient reports a 2 day history of an atruamatic severe frontal headache that radiates to both of his ears, right greater than left with associated generalized malaise and a sore throat. He denies associated symptoms of lightheadedness, visual changes, dizziness, chest pain, neck and back pain. He also notes a 2 day history of intermittent subjective fevers at home with associated shaking chills and myagias. Upon ED arrival, patient was noted to have an oral temperature of 102.9 and tachycardic to 118 bpm. PATIENT REPORTS INSECT BITE 23 DAYS AGO PT HERE FROM [place] 66 DAYS AGO - Past Medical History Cardiovascular: Yes: CAD, HTN, Hyperlipdemia Pulmonary: No: Asthma Gastrointestinal: No: Ascites Renal/: Yes: Renal Inusuff, BPH Endocrine: Yes: Diabetes Mellitus - Smoking History Smoking history: Former smoker Home Medications - Allergies Allergies/Adverse Reactions: Allergies Allergy/AdvReac Type Severity Reaction Status Date / Time No Known Allergies Allergy Verified 03/21/17 15:23 - Home Medications Home Medications: Ambulatory Orders Bisoprolol Fumarate 03/22/17 Enalapril Maleate 03/22/17 Metformin HCl 03/22/17 Simvastatin 03/22/17 Tamsulosin HCl 03/22/17 Physical Examination Vital Signs: Last Vital Signs Temp Pulse Resp BP Pulse Ox 97.8 F 74 20 141/75 96 03/24/17 18:00 03/24/17 18:00 03/24/17 18:00 03/24/17 18:00 03/24/17 09:00 HENT: Yes: Other (minimal erythema of left tm) Cardiovascular: Yes: Regular Rate and Rhythm Respiratory: Yes: Regular, CTA Bilaterally Gastrointestinal: Yes: Normal Bowel Sounds, Soft Edema: No Abnormal Lab Results 03/24/17 16:00 WBC 3.3 L Plt Count 70 L D A/P 71 y/o patient with HTN, hypercholesterolemia, DM, CAD,comes in with fevers ? viral picture fever curve improved Suspect leukopenia/thrombocytopenia due to viral marrow suppression If persists over next few weeks or if worsens will need further w/u will need moniotoring of CBC discussed plan with daughter and son-in-law over the phome
[2017-03-24] MEDS: DOCUSATE SODIUM 100 MG CAPSULE (FP) PO SCH (21:30)
[2017-03-24] MEDS: ATORVASTATIN CA 20 MG TABLET (FP) PO SCH (21:30)
[2017-03-25] MEDS: sitaGLIPtin PHOSPHATE 50 MG TABLET PO SCH (06:23)
[2017-03-25] MEDS: SODIUM CHLORIDE 0.45%/POT 1,000 ML IV SCH ×2 (06:23→22:00)
[2017-03-25] MEDS: TAMSULOSIN HCL 0.4 MG CAP.ER.24H (FP) PO SCH (08:00)
[2017-03-25 08:21] LABS: MCH 30.4 pg (25.7-33.7); MCHC 34.2 g/dl (32.0-35.9); MEAN CELL VOLUME 88.7 fl (80-96); MEAN PLT VOLUME 8.1 fl (7.5-11.1); PLATELET COUNT 71 K/MM3 (134-434); WHITE BLOOD COUNT 3.4 K/mm3 (4.0-10.0)
[2017-03-25 09:04] LABS: ALBUMIN 3.4 g/dl (3.4-5.0); ALK PHOS 73 U/L (45-117); ANION GAP 10 (8-16); BILIRUBIN,TOTAL 0.3 mg/dL (0.2-1.0); CALCIUM 8.7 mg/dL (8.5-10.1); CO2 24 mmol/L (21-32); GLUCOSE,RANDOM 124 mg/dL (74-106); SGOT/AST 44 U/L (15-37); SGPT/ALT 52 U/L (12-78); TOT PROT 6.2 g/dl (6.4-8.2)
--- NOTE | 2017-03-25 10:42 | PN ---
Progress Note, Physician Chief Complaint: FUO HEADACHES History of Present Illness: COMFORTABLE IN BED, ALERT, IS GOING FOR CTA ABDOMEN - Current Medication List Current Medications: Active Medications Acetaminophen (Tylenol -) 650 mg PO Q4H PRN PRN Reason: FEVER OR PAIN Last Admin: 03/22/17 01:55 Dose: 650 mg Aspirin (Ecotrin -) 81 mg PO DAILY [facility] Last Admin: 03/24/17 10:16 Dose: 81 mg Atorvastatin Calcium (Lipitor -) 20 mg PO [facility] Last Admin: 03/24/17 21:30 Dose: 20 mg Docusate Sodium (Colace -) 300 mg PO HS [facility] Last Admin: 03/24/17 21:30 Dose: 300 mg Heparin Sodium (Porcine) (Heparin -) 5,000 unit SQ BID [facility] Last Admin: 03/24/17 21:30 Dose: 5,000 unit Potassium Chloride/Sodium Chloride (1/2ns+20meq Kcl) 1,000 mls @ 75 mls/hr IV ASDIR [facility] Last Admin: 03/25/17 06:23 Dose: 75 mls/hr Doxycycline Hyclate 100 mg/ (Dextrose) 100 mls @ 100 mls/hr IVPB BID [facility] Last Admin: 03/24/17 21:30 Dose: 100 mls/hr Nebivolol (Bystolic -) 5 mg PO DAILY [facility] Last Admin: 03/24/17 10:16 Dose: 5 mg Sitagliptin Phosphate (Januvia -) 50 mg PO DAILY@0700 [facility] Last Admin: 03/25/17 06:23 Dose: 50 mg Tamsulosin HCl (Flomax -) 0.4 mg PO DAILY@0830 [facility] Last Admin: 03/25/17 08:00 Dose: 0.4 mg - Objective Vital Signs: Vital Signs Temperature 98.1 F 03/25/17 06:59 Pulse Rate 69 03/25/17 06:59 Respiratory Rate 20 03/25/17 06:59 Blood Pressure 143/81 03/25/17 06:59 O2 Sat by Pulse Oximetry (%) 96 03/24/17 21:00 Constitutional: Yes: Well Nourished, No Distress, Calm Cardiovascular: Yes: Regular Rate and Rhythm Respiratory: Yes: Regular Musculoskeletal: Yes: WNL Extremities: Yes: WNL Edema: Yes Edema: LLE: Trace, RLE: Trace Peripheral Pulses WNL: Yes ...Motor Strength: WNL Psychiatric: Yes: Alert Labs: CBC, BMP 03/25/17 06:35 03/25/17 06:35 Problem List - Problems (1) Anemia Assessment/Plan: SEEN BY HEMATOLOGY STOOL GUAIAC NEGATIVE Code(s): D64.9 - ANEMIA, UNSPECIFIED Qualifiers: Qualified Code(s): D64.9 - Anemia, unspecified (2) Diabetes Assessment/Plan: HGA1C 6.4% CONTROLLED, LAST FEW BGM WERE OKAY, D/C BGMS AND NOVOLOG SLIDING SCALE, CONTINUE JANUVIA Code(s): E11.9 - TYPE 2 DIABETES MELLITUS WITHOUT COMPLICATIONS (3) Fever Assessment/Plan: AFEBRILE FROM PAST 24 HOURS, CTA ABDOMEN REVIEWED- FATTY LIVER, GALLBLADDER CALCIFICATION, MILD ENLARGEMET OF SPLEEN GI CONSULT CALLED IN FOR EVALUATION. Code(s): R50.9 - FEVER, UNSPECIFIED Qualifiers: Qualified Code(s): R50.84 - Febrile nonhemolytic transfusion reaction (4) Renal insufficiency Assessment/Plan: DEHYDRATION? IVF ORDERED. Code(s): N28.9 - DISORDER OF KIDNEY AND URETER, UNSPECIFIED (5) Thrombocytopenia Assessment/Plan: HEMATOLOGY CONSULT, IMPROVED, REPEAT LABS IN AM Code(s): D69.6 - THROMBOCYTOPENIA, UNSPECIFIED (6) Leukocytosis Assessment/Plan: CAUSE VIRAL? WORK UP PENDING BEING SEEN BY HEMATOLOGY AND ID Code(s): D72.829 - ELEVATED WHITE BLOOD CELL COUNT, UNSPECIFIED Assessment/Plan -GI CONSULT -CONTIUE IV ABX -MONITOR V/S AND LABS -SOME SEROLOGY PENDING -NO FEBRILE EVENTS -IVF -LIKELY VIRAL - IF STABLE AND CLEARED BY HEMATOLOGY AND ID, JANUARY D/C HOME IN AM WITH OUTPATIENT FOLLOW UP.
[2017-03-25] MEDS ORDERED: PT OWN MED DRAWER 7, Y5N ONE (11:48)
[2017-03-25] MEDS: NEBIVOLOL 5 MG TABLET (FP) PO SCH (12:13)
[2017-03-25] MEDS: HEPARIN NA (PORCINE) 5,000 UNITS/ML 1ML VIAL SQ SCH ×2 (12:13→22:00)
[2017-03-25] MEDS: ASPIRIN COATED 81 MG TABLET.EC PO SCH (12:13)
[2017-03-25] MEDS: DOXYCYCLINE INJECTION 100 MG in DEXTROSE 5%-WATER - 100 ML IVPB SCH (14:03)
--- NOTE | 2017-03-25 16:21 | PN ---
Progress Note, Physician History of Present Illness: Via patient support specialist- no complaints No fever/ chills No headache/ bodyache Temps down- afebrile Remains leukopenic / thrombocytopenic - Current Medication List Current Medications: Active Medications Acetaminophen (Tylenol -) 650 mg PO Q4H PRN PRN Reason: FEVER OR PAIN Last Admin: 03/22/17 01:55 Dose: 650 mg Aspirin (Ecotrin -) 81 mg PO DAILY [facility] Last Admin: 03/25/17 12:13 Dose: 81 mg Atorvastatin Calcium (Lipitor -) 20 mg PO HS [facility] Last Admin: 03/24/17 21:30 Dose: 20 mg Docusate Sodium (Colace -) 300 mg PO HS [facility] Last Admin: 03/24/17 21:30 Dose: 300 mg Heparin Sodium (Porcine) (Heparin -) 5,000 unit SQ BID [facility] Last Admin: 03/25/17 12:13 Dose: 5,000 unit Potassium Chloride/Sodium Chloride (1/2ns+20meq Kcl) 1,000 mls @ 75 mls/hr IV ASDIR [facility] Last Admin: 03/25/17 06:23 Dose: 75 mls/hr Doxycycline Hyclate 100 mg/ (Dextrose) 100 mls @ 100 mls/hr IVPB BID [facility] Last Admin: 03/25/17 14:03 Dose: 100 mls/hr Nebivolol (Bystolic -) 5 mg PO DAILY [facility] Last Admin: 03/25/17 12:13 Dose: 5 mg Sitagliptin Phosphate (Januvia -) 50 mg PO DAILY@0700 [facility] Last Admin: 03/25/17 06:23 Dose: 50 mg Tamsulosin HCl (Flomax -) 0.4 mg PO DAILY@0830 [facility] Last Admin: 03/25/17 08:00 Dose: 0.4 mg - Objective Vital Signs: Vital Signs Temperature 98.5 F 03/25/17 14:42 Pulse Rate 74 03/25/17 14:42 Respiratory Rate 20 03/25/17 14:42 Blood Pressure 139/77 03/25/17 14:42 O2 Sat by Pulse Oximetry (%) 97 03/25/17 10:00 Constitutional: Yes: No Distress Eyes: Yes: Conjunctiva Clear Cardiovascular: Yes: Regular Rate and Rhythm, S1, S2 Respiratory: Yes: CTA Bilaterally Gastrointestinal: Yes: Normal Bowel Sounds, Soft. No: Tenderness Extremities: Yes: Other (Annular rash R LE no change in size) Labs: CBC, BMP 03/25/17 06:35 03/25/17 06:35 Assessment/Plan Fever, leukopenia/ thrombocytopenia Tick-related illness v. viral Await serologies May switch to po doxycycline- complete 14d course
[2017-03-25] MEDS ORDERED: DOXYCYCLINE MONOHYDRATE 25 MG/5 ML BOTTLE PO SCH (18:00)
--- NOTE | 2017-03-25 20:14 | CON.GI ---
Consult Consult Specialty:: GASTROENTEROLOGY Referred by:: JAYA MURO Reason for Consultation:: CALCIFICATION OF THE GALL BLADDER. ABDOMINAL PAIN. NAUSEA - History of Present Illness Chief Complaint: FEVER. ABDOMINAL PAIN. NAUSEA History of Present Illness: 71 YEAR OLD MALE WITH HTN, NIDDM, HLD, OBESITY, NEPHROLITHIASIS, CAD sp STENT, ADMITTED WITH FEVER, HEADACHE, MYALGIA,LIKELY RELATED TO [place] ILLNESS OR VIRAL FEVER, WAS DOING WELL AND GETTING READY FOR DISCHARGE WHEN HE HAD ONE DAY OF ABDOMINAL DISCOMFORT, DISTENSION AND NAUSEA, A CT ABDOMEN WAS DONE, AND REVEALED FATTY LIVER, AND CALCIFIED GALL BLADDER WALL. PATIENT DENIES PRIOR EPISODES OF ABDOMINAL PAIN, NAUSEA OR DISTENSION. DENIES CHEST PAIN, HEARTBURN , BILIARY COLIC, CONSTIPATION OR DIARRHEA, DOES REPORT INTERMITTENT BRBPR, ? PRIOR EVALUATION - History Source History Provided By: Patient, Family Member, Medical Record Limitations to Obtaining History: Language Barrier - Past Medical History Cardio/Vascular: Yes: CAD, HTN, Hyperlipdemia Pulmonary: No: Asthma Gastrointestinal: No: Ascites Renal/: Yes: Renal Inusuff, BPH Endocrine: Yes: Diabetes Mellitus - Alcohol/Substance Use Hx Alcohol Use: No - Smoking History Smoking history: Former smoker Have you smoked in the past 12 months: No Home Medications - Allergies Allergies/Adverse Reactions: Allergies Allergy/AdvReac Type Severity Reaction Status Date / Time No Known Allergies Allergy Verified 03/21/17 15:23 - Home Medications Home Medications: Ambulatory Orders Bisoprolol Fumarate 03/22/17 Enalapril Maleate 03/22/17 Metformin HCl 03/22/17 Simvastatin 03/22/17 Tamsulosin HCl 03/22/17 Physical Exam-GI Vital Signs: Vital Signs Temperature 98.4 F 03/25/17 18:55 Pulse Rate 74 03/25/17 18:55 Respiratory Rate 20 03/25/17 18:55 Blood Pressure 133/71 03/25/17 18:55 O2 Sat by Pulse Oximetry (%) 97 03/25/17 10:00 Constitutional: Yes: Obese Eyes: Yes: Conjunctiva Clear, EOM Intact, PERRL Neck: Yes: Trachea Midline Cardiovascular: Yes: Regular Rate and Rhythm Respiratory: Yes: CTA Bilaterally Gastrointestinal Inspection: Yes: Other (OBESE, EXAM LIMITED, HOWEVER NO TENDER , REBOUND TENDERNESS, NORMOACTIVE BOWEL SOUNDS) ...Auscultate: Yes: Normoactive Bowel Sounds ...Palpate: Yes: Soft Edema: No Peripheral Pulses WNL: Yes Labs: CBC, BMP 03/25/17 06:35 03/25/17 06:35 Imaging - Results Cat Scan: Report Reviewed Assessment/Plan 1. GALL BLADDER WALL CALCIFICATION: PATIENT WITH GALL BLADDER WALL CALCIFICATION, THIS IS A RISK FACTOR FOR GALL BLADDER CANCER, AND HE SHOULD HAVE A ELECTIVE CHOLECYSTECTOMY. 2. FATTY LIVER DISEASE: PATIENT WITH OBESITY, DIABETES, HYPERLIPIDEMIA, HE IS AT HIGH RISK FOR YEH AND CIRRHOISIS. ADVICE WEIGHT LOSS AND EXERCISE 3. INTERMITTENT CHRONIC BRBPR: HB STABLE, NO EVIDENCE OF SEVERE GI BLEED REQUIRING ENDOSCOPIC EVALUATION. WILL NEED ELECTIVE COLONOSCOPY TO FURTHER EVALUATE. FAMILY FRIEND/DRY CLEANING COUNTER CLERK WILL FOLLOW UP WITH HIS CHILDREN IN [place] REGARDING WORKUP 4. OBESITY: PATIENT CAN BE DISCHARGED , HE IS TO FOLLOW WITH HIS SOCIAL WORK NURSE ON RETURN TO [place]
--- NOTE | 2017-03-25 20:44 | PN ---
Progress Note (short form) - Note Progress Note: PAtient seen and examined Asympptomatic Last Vital Signs Temp Pulse Resp BP Pulse Ox 98.4 F 74 20 133/71 97 03/25/17 18:55 03/25/17 18:55 03/25/17 18:55 03/25/17 18:55 03/25/17 10:00 Cor: RSR, No murmurs, No gallops Lungs: Clear to P&A Abd: Soft, Normal bowel sounds, No organomegaly Ext:No significant edema Skin: No rashes, Integument intact Abnormal Lab Results 03/25/17 03/25/17 06:35 06:35 WBC 3.4 L RBC 3.95 L Hct 35.0 L Plt Count 71 L BUN 21 H D Random Glucose 124 H AST 44 H Total Protein 6.2 L Active Medications Generic Name Dose Route Start Last Admin Trade Name Freq PRN Reason Stop Dose Admin Acetaminophen 650 mg 03/21/17 22:08 03/22/17 01:55 Tylenol - PO 650 mg Q4H PRN Administration FEVER OR PAIN Aspirin 81 mg 03/22/17 10:00 03/25/17 12:13 Ecotrin - PO 81 mg DAILY [facility] Administration Atorvastatin Calcium 20 mg 03/22/17 22:00 03/24/17 21:30 Lipitor - PO 20 mg HS [facility] Administration Docusate Sodium 300 mg 03/22/17 22:00 03/24/17 21:30 Colace - PO 300 mg HS [facility] Administration Doxycycline Monohydrate 100 mg 03/25/17 18:00 03/25/17 17:52 Vibramycin Oral Suspension - PO 100 mg BID@1000,1800 [facility] Administration Heparin Sodium (Porcine) 5,000 unit 03/22/17 10:00 03/25/17 12:13 Heparin - SQ 5,000 unit BID [facility] Administration Potassium Chloride/Sodium Chloride 1,000 mls @ 75 mls/hr 03/21/17 22:30 06:23 1/2ns+20meq Kcl IV 75 mls/hr ASDIR [facility] Administration Nebivolol 5 mg 03/22/17 11:30 03/25/17 12:13 Bystolic - PO 5 mg DAILY [facility] Administration Sitagliptin Phosphate 50 mg 03/23/17 07:00 03/25/17 06:23 Januvia - PO 50 mg DAILY@0700 [facility] Administration Tamsulosin HCl 0.4 mg 03/22/17 08:30 03/25/17 08:00 Flomax - PO 0.4 mg DAILY@0830 [facility] Administration A?P 71 y/o patient with HTN, hypercholesterolemia, DM, CAD,comes in with fevers ? viral picture fever curve improved Suspect leukopenia/thrombocytopenia due to viral marrow suppression If persists over next few weeks or if worsens will need further w/u will need moniotoring of CBC
[2017-03-25] MEDS: DOCUSATE SODIUM 100 MG CAPSULE (FP) PO SCH (22:00)
[2017-03-25] MEDS: ATORVASTATIN CA 20 MG TABLET (FP) PO SCH (22:00)
[2017-03-26 00:07] LABS: BABESIA MICROTI ANTIBODY IGG <1:10 (Neg:<1:10)
[2017-03-26] MEDS: sitaGLIPtin PHOSPHATE 50 MG TABLET PO SCH (06:15)
[2017-03-26] MEDS: SODIUM CHLORIDE 0.45%/POT 1,000 ML IV SCH (08:03)
[2017-03-26 09:02] LABS: INR 1.02 (0.82-1.09); PROTHROMBIN TIME (PATIENT) 11.2 SEC (9.98-11.88)
[2017-03-26 09:05] LABS: ACTIVATED PTT 32.3 SECONDS (26.9-34.4)
[2017-03-26] MEDS: TAMSULOSIN HCL 0.4 MG CAP.ER.24H (FP) PO SCH (09:20)
[2017-03-26 09:24] LABS: BASOPHIL 0.4 % (0-2.0); EOSINOPHIL 3.3 % (0-4.5); MCH 30.2 pg (25.7-33.7); MEAN PLT VOLUME 8.2 fl (7.5-11.1); NEUTROPHILS 58.4 % (42.8-82.8); PLATELET COUNT 82 K/MM3 (134-434); RDW 14.3 % (11.9-15.9); WHITE BLOOD COUNT 3.8 K/mm3 (4.0-10.0)
[2017-03-26] MEDS: NEBIVOLOL 5 MG TABLET (FP) PO SCH (09:49)
[2017-03-26] MEDS: ASPIRIN COATED 81 MG TABLET.EC PO SCH (09:49)
[2017-03-26] MEDS: HEPARIN NA (PORCINE) 5,000 UNITS/ML 1ML VIAL SQ SCH (09:50)
[2017-03-26] MEDS ORDERED: DOXYCYCLINE HYCLATE 100 MG CAPSULE PO SCH (10:00)
[2017-03-26 10:49] VITALS: BP 136/79; PULSE 68; TEMP 97.6
--- NOTE | 2017-03-26 12:15 | DS ---
Physical Examination Vital Signs: Vital Signs Temperature 97.6 F 03/26/17 10:00 Pulse Rate 68 03/26/17 10:00 Respiratory Rate 20 03/26/17 10:00 Blood Pressure 136/79 03/26/17 10:00 O2 Sat by Pulse Oximetry (%) 94 L 03/26/17 09:00 Constitutional: Yes: Calm Neck: Yes: Trachea Midline Cardiovascular: Yes: Regular Rate and Rhythm, S1, S2 Respiratory: Yes: CTA Bilaterally Gastrointestinal: Yes: Soft Neurological: Yes: Alert, Oriented Labs: CBC, BMP 03/26/17 07:45 03/25/17 06:35 Discharge Summary Reason For Visit: SIRS SYSTEMIC INFLAMMATORY RESPONSE Current Active Problems Anemia (Acute) Diabetes (Acute) Fever (Acute) Leukocytosis (Acute) Renal insufficiency (Acute) Sepsis (Acute) Systemic inflammatory response syndrome (SIRS) (Acute) Thrombocytopenia (Acute) Hospital Course: 71-year-old man with a significant past medical history of hypertension, hypercholesterolemia, coronary artery disease status post stent x1, non-insulin diabetes mellitus and kidney stones who presents to the emergency department for fever. Patient reports a 2 day history of a severe frontal headache that radiates to both of his ears, right greater than left with associated generalized malaise and a sore throat. He denies associated symptoms of lightheadedness, visual changes, dizziness, chest pain, neck and back pain. He also notes a 2 day history of intermittent subjective fevers at home with associated shaking chills and myagias. Upon ED arrival, patient was noted to have an oral temperature of 102.9 and tachycardic to 118 bpm. PATIENT REPORTS INSECT BITE 23 DAYS AGO PT HERE FROM [place] 66 DAYS AGO 1. GALL BLADDER WALL CALCIFICATION: PATIENT WITH GALL BLADDER WALL CALCIFICATION, THIS IS A RISK FACTOR FOR GALL BLADDER CANCER, AND HE SHOULD HAVE A ELECTIVE CHOLECYSTECTOMY. 2. FATTY LIVER DISEASE: PATIENT WITH OBESITY, DIABETES, HYPERLIPIDEMIA, HE IS AT HIGH RISK FOR YEH AND CIRRHOISIS. ADVICE WEIGHT LOSS AND EXERCISE 3. INTERMITTENT CHRONIC BRBPR: HB STABLE, NO EVIDENCE OF SEVERE GI BLEED REQUIRING ENDOSCOPIC EVALUATION. WILL NEED ELECTIVE COLONOSCOPY TO FURTHER EVALUATE. FAMILY FRIEND/SKIFF OPERATOR WILL FOLLOW UP WITH HIS CHILDREN IN [place] REGARDING WORKUP thrombocytopenia and leukopenia sec to viral illness- slowly improving fever subsided doxycycline for total of 14 days patient to follow up with his front office associate in [place].he will need elective cholecystectomy Condition: Improved - Instructions Diet, Activity, Other Instructions: doxycycline po twice a day for 14 days Disposition: HOME - Home Medications Comprehensive Discharge Medication List: Ambulatory Orders Bisoprolol Fumarate 03/22/17 Enalapril Maleate 03/22/17 Metformin HCl 03/22/17 Simvastatin 03/22/17 Tamsulosin HCl 03/22/17
[2017-03-27 00:06] LABS: PARV B19 IGG 0.2 index (0.0-0.8); PARV B19 IGM 0.2 index (0.0-0.8)
--- NOTE | 2017-03-29 08:35 | PATH ---
Surgical Pathology Report Patient Name: CAROLYN SALES [facility]. Rec. #: [id number] /Age/Gender: 1945 (Age: 71) / M Account: [id number] Location: [address] [place] [address] Taken: 03/26/2017 Received: 03/26/2017 Reported: 03/29/2017 Physicians: Edelmira Baires M.D. Specimen(s) Received PERIPHERAL BLOOD Clinical History Leukopenia, thrombocytopenia, r/o MDS Final Diagnosis FLOW CYTOMETRY PERFORMED AND INTERPRETED AT [place], [place] ([id number]) SHOWED THE FOLLOWING: INTERPRETATION: No atypical flow cytometric findings seen. Phenotype: Lymphocytes include polyclonal T-cells, NK-cells and immunophenotypically normal CD4+ and CD8+ T-cells in normal proportions. No evidence of a clonal lymphoid expansion. Granulocytes and immunophenotypically mature. Cytomorphology: Smears from flow sample show no increase in myeloblasts or atypical lymphocytes. Electronically Signed Steve Portillo M.D. Addendum Reported: 03/29/2017 Addendum Diagnosis MDS FISH STUDIES PERFORMED AND INTERPRETED AT [place], [place] ([id number]) ARE FOLLOWS: INTERPRETATION: No evidence of deletion 5q or monosomy 5 is present. No evidence of deletion 7q or monosomy 7 is present. No evidence of trisomy8 (+8) is present. No evidence of deletion 13q14 is present. No evidence of a rearrangement of 11q23. No evidence of a deletion of the p53 (17p13) locus. No evidence of deletion 20q12 is present. Comments: The study is negative for many of the most common recurrent genetic abnormalities in Myelodysplastic Syndrome. Correlation with pending cytogenetics ([id number]) is recommended. Steve Portillo M.D. Addendum Reported: 04/02/2017 Addendum Diagnosis CYTOGENETIC KARYOTYPE ANALYSIS PERFORMED AND INTERPRETED AT [place], [place] ([id number]) SHOWED THE FOLLOWING: TEST RESULTS: Tissue Culture Failure. DIAGNOSTIC INTERPRETATION: This unstimulated peripheral blood specimen did not produce any mitotic cells and, therefore, chromosome analysis is not possible. A bone marrow aspirate, when clinically appropriate, is recommended. Steve Lindsey, M.D. Gross Description Received are 2 green top tubes of peripheral blood which are sent to [facility]. 03/26/2017 [facility]03/26/2017
== END 2017-03-26 14:30 | disposition home or self-care (01) | DRG 720 ==
LOC: JER 15:20 → JERBED 18:33 → J5S 21:07
PROVIDERS: ADMIT Family Medicine; ATTEND Family Medicine
DX: A41.9 Sepsis, unspecified organism (principal); D69.6 Thrombocytopenia, unspecified; E11.9 Type 2 diabetes mellitus without complications; D64.9 Anemia, unspecified; N28.9 Disorder of kidney and ureter, unspecified; D72.829 Elevated white blood cell count, unspecified; I10 Essential (primary) hypertension; K76.0 Fatty (change of) liver, not elsewhere classified; I25.10 Atherosclerotic heart disease of native coronary artery without angina pectoris; Z98.61 Coronary angioplasty status; E78.5 Hyperlipidemia, unspecified; N40.0 Benign prostatic hyperplasia without lower urinary tract symptoms; D72.819 Decreased white blood cell count, unspecified; E66.9 Obesity, unspecified; Z68.35 Body mass index [BMI] 35.0-35.9, adult; R50.9 Fever, unspecified
CPT/HCPCS: 36415; 70450-TC; 71010-TC; 74160-TC; 80053; 80061; 81003; 81015; 82272; 82607; 82930; 83010; 83036; 83540; 83550; 83605; 83615; 83721; 84443; 84484; 85025; 85027; 85384; 85610; 85651; 85730; 86140; 86308; 86618; 86644; 86645; 86666; 86747; 86753; 87040; 87086; 87207; 88300-TC; 93005; 93010; 93306-TC; 99285-25; J1644; J3480; Q9967